=== PATIENT | male | born 1975 | race Caucasian/White ===

== ENCOUNTER → 2020-06-12 17:17 | Outpatient (CLI) | payer BC, SELFPAY ==
--- NOTE | ~2020-06-12 | XR_ITS ---
XR chest 2V DATE: 06/12/2020 17:32 INDICATION: Chest pain TECHNIQUE: PA and lateral views COMPARISON: None FINDINGS: Heart size is within normal range. No pulmonary infiltrate or consolidation, pleural effusi on or pulmonary vascular congestion or pneumothorax is detected. IMPRESSION: No active disease Reviewed, dictated and finalized at location A. IMPRESSION: No active disease
== END ==
PROVIDERS: Visit Provider Physician Assistant
DX: R07.9 Chest pain, unspecified (principal)
CPT/HCPCS: 71046

== ENCOUNTER 2020-06-13 15:46 | Outpatient (CLI) | payer BC, SELFPAY | END 2020-06-13 15:47 | disposition home or self-care (01) | LOC: ANHCOVIDVC 15:46 | DX: Z23 Encounter for immunization (principal) | CPT/HCPCS: 0001A; 91300 ==

== ENCOUNTER 2020-07-04 15:47 | Outpatient (CLI) | payer BC, SELFPAY | END 2020-07-04 15:48 | disposition home or self-care (01) | LOC: ANHCOVIDVC 15:47 | DX: Z23 Encounter for immunization (principal) | CPT/HCPCS: 0002A; 91300 ==

== ENCOUNTER 2020-07-18 08:34 | Outpatient (CLI) | payer BC, SELFPAY ==
--- NOTE | 2020-07-18 08:43 | EST_ITS ---
Patient Info Name: Liban Palomares Age: 44 years : 1975 Gender: Male Ht: 72 in Wt: 330 lbs BSA: 2.83 m2 HR: 84 bpm BP: 148 / 84 mmHg Technical Quality: Good Exam Date: 07/18/2020 8:58 AM Exam Location: [facility] Patient Status: Outpatient Admit Date: 07/18/2020 Staff Ordering Physician: Trev Thomas PA-C Director Of Sustainability: Mckenna Gonzalez RDCS Attending Provider: Trev Thomas PA-C Referring Physician: William PEREZ; Exercise Technologist: Larisa Torres CT Exercise Physician: Mau Alan DO Exam Type: CA stress echo Study Info Indications - left shoulder pain/ arm pain Treadmill exercise stress echocardiogram is performed. Summary 1. 1. Negative Manuel exercise stress test for ischemic ST changes by ECG criteria. 2. 2. Reduced functional capacity, achieving 7 METs of workload. 3. 3. Appropriate HR response to exercise. 4. 4. Appropriate HR recovery at 1 minute post exercise. 5. 5. Negative stress echocardiogram for ischemia by wall motion analysis. 6. 6. Patient informed of the above results. Stress Echo Findings Left Ventricle Appropriate increase in LV endocardial thicking with systole. Appropriate augmentation of contractility with systole. No wall motion abnormality. Left Ventricle Normal LV systolic function, no wall motion abnormality. Protocol: Manuel Stress ECG Details Stage: REST Duration (min): 1 min : 14 sec Speed (mph): 0.0 Grade (%): 0 HR (bpm): 88 SBP (mmHg): 148 DBP (mmHg): 84 METS: --- Stage: REST Duration (min): 11 min : 43 sec Speed (mph): 0.0 Grade (%): 0 HR (bpm): 94 SBP (mmHg): 148 DBP (mmHg): 84 METS: --- Stage: STAGE 1 Duration (min): 0 min : 36 sec Speed (mph): 1.7 Grade (%): 10 HR (bpm): 99 SBP (mmHg): 148 DBP (mmHg): 84 METS: --- Stage: RECOVERY Duration (min): 0 min : 6 sec Speed (mph): 1.5 Grade (%): 0 HR (bpm): 97 SBP (mmHg): 148 DBP (mmHg): 84 METS: --- Rest HR: 94 bpm Peak HR: 100 bpm Rest Sys BP: 148 mmHg Max Pred HR: 176 bpm % Max Pred HR: 57 % Target HR: 150 bpm Max RPP: 12,876 bpm*mmHg Carl Score: -5 Termination Reason: Reached target heart rate or workload Cardiac Symptoms: Shortness of breath Max ST Seg Deviation: 1.10 mm Total Time: 0 min : 36 sec Rest Barr BP: 84 mmHg Angina Score: None Total METS: 2.2 Resting ECG Sinus rhythm. Stress ECG No ST changes. Arrhythmias None. Report Signatures Stress ECG Echo
== END 2020-07-18 08:35 | disposition home or self-care (01) ==
PROVIDERS: Visit Provider Physician Assistant
DX: R07.9 Chest pain, unspecified (principal)
CPT/HCPCS: 93351

== ENCOUNTER → 2020-08-14 07:42 | Outpatient (CLI) | payer BC, SELFPAY ==
--- NOTE | ~2020-08-14 | US_ITS ---
US abdomen limited DATE: 08/14/2020 08:12 INDICATION: Elevated liver enzymes TECHNIQUE: Real-time imaging of liver, pancreas, gallbladder areas COMPARISON: None FINDINGS: There is limited visualization of the pancreas due to interference from bowel gas. Hepatic steatosis. No hepatic space-occupying mass lesion is evident. Normal hepatopedal portal venou s flow direction. No gallstones or gallbladder wall thickening or abnormal pericholecystic fluid collection. Negative s onographic Ayoub's sign. Common bile duct measures 4 mm, normal. IMPRESSION: Hepatic steatosis Normal gallbladder The pancreas is not well demonstrated due to interference from overlying bowel gas. Reviewed, dictated and finalized at Location A. Reviewed, dictated and finalized at location B.
== END ==
PROVIDERS: PCP Family Medicine; Visit Provider Physician Assistant
DX: R74.8 Abnormal levels of other serum enzymes (principal); K76.0 Fatty (change of) liver, not elsewhere classified
CPT/HCPCS: 76705

== ENCOUNTER 2020-11-02 11:03 | Emergency (ER) | payer BC, SELFPAY ==
[2020-11-02 11:11] VITALS: BP 162/86; PULSE 83; RESP 18; TEMP 36.9; O2SAT 98
--- NOTE | 2020-11-02 11:53 | ED.GENADULT ---
HPI - General Adult General Chief complaint: Upper Respiratory Infection Stated complaint: Fatigue,Stuff nose Time Seen by Provider: 11/02/20 11:20 Source: patient and RN notes reviewed Mode of arrival: ambulatory Limitations: no limitations History of Present Illness HPI narrative: Patient presents today with a 1 week history of fatigue, intermittent congestion, and frontal headache. Denies cough or fever. He has been vaccinated against COVID-19. He has not tried any [id number] treatment prior to arrival. He is requesting a rapid COVID-19 test, as he just returned from [place]. complaint: Fatigue, headache, congestion Related Data Allergies Allergy/AdvReac Type Severity Reaction Status Date / Time No Known Allergies Allergy Unverified 06/12/20 16:27 Review of Systems Review of Systems: CONSTITUTIONAL: Denies body aches, fever, chills, or sweats.+ Fatigue EYES: Denies visual changes, redness, or discharge. ENT: Denies rhinorrhea, sore throat, or otalgia.+ Congestion CARDIOVASCULAR: Denies chest pain, palpitations, or edema. RESPIRATORY: Denies cough or dyspnea. GASTROINTESTINAL: Denies abdominal pain, nausea, vomiting, or diarrhea. GENITOURINARY: Denies dysuria or hematuria. SKIN: Denies rash, itching, or wounds. MUSCULOSKELETAL: Denies back pain, joint pain, or myalgia. NEUROLOGIC: Denies numbness, tingling, or weakness.+ Headache PSYCH: Denies depression or anxiety. [facility] Family History Family History Father Hypertension Grandparent Family history of cardiovascular disease Acute myocardial infarction Family history of lung cancer Mother Family history of malignant neoplasm of thyroid Social History Social History Smoking status: Never smoker Alcohol intake: never Course Vital Signs Vital signs: Vital Signs Temperature 98.5 F 11/02/20 11:11 Pulse Rate 83 11/02/20 11:11 Respiratory Rate 18 11/02/20 11:11 Blood Pressure 162/86 H 11/02/20 11:11 Pulse Oximetry 98 11/02/20 11:11 Temperature 98.5 F 11/02/20 11:11 Pulse Rate 83 11/02/20 11:11 Respiratory Rate 18 11/02/20 11:11 Blood Pressure 162/86 H 11/02/20 11:11 Pulse Oximetry 98 11/02/20 11:11 Reviewed. Pt has been instructed to follow up with his PCP regarding his elevated blood pressure today. Medical Decision Making Differential Diagnosis Differential Diagnosis: COVID-19, URI, rhinitis, sinusitis Vital Signs Vital Signs: Vital Signs Temperature 98.5 F 11/02/20 11:11 Pulse Rate 83 11/02/20 11:11 Respiratory Rate 18 11/02/20 11:11 Blood Pressure 162/86 H 11/02/20 11:11 Pulse Oximetry 98 11/02/20 11:11 Temperature 98.5 F 11/02/20 11:11 Pulse Rate 83 11/02/20 11:11 Respiratory Rate 18 11/02/20 11:11 Blood Pressure 162/86 H 11/02/20 11:11 Pulse Oximetry 98 11/02/20 11:11 Lab Data Labs: Lab Results 11/02/20 Range/Units Unknown POC SARS CoV-2 Ag Negative (Negative) Critical Care Time Critical Care Time Critical Care Time: No Discharge Plan Discharge Clinical Impression: Upper respiratory infection Qualifiers: URI type: unspecified URI Qualified Code(s): J06.9 - Acute upper respiratory infection, unspecified Patient Disposition: Home, Self-Care Condition: Stable Instructions: Upper Respiratory Infection (DC) Additional Instructions: Your symptoms are likely due to a virus, which is not treated with antibiotics. Take qdvy-iue-araowsy medication such as an antihistamine such as Zyrtec, Claritin, or Rebecca. For your headache, take an anti-inflammatory such as Aleve or ibuprofen. Rest and stay hydrated. Stay in the air conditioning today. Follow-up with your doctor in 3 to 4 days if symptoms are not improving. Your blood pressure was elevated above 120/80 today at Urgent Care. This puts you above the threshold
== END 2020-11-02 12:08 | disposition home or self-care (01) ==
PROVIDERS: Emergency Provider Nurse Practitioner; PCP Family Medicine
DX: J06.9 Acute upper respiratory infection, unspecified (principal); Z20.822 Contact with and (suspected) exposure to COVID-19
CPT/HCPCS: 87426; 99213; C9803; G0463

== ENCOUNTER 2020-12-03 10:40 | Emergency (ER) | payer BC, SELFPAY ==
[2020-12-03] VITALS (18 sets, daily range): BP systolic 140–163; BP diastolic 62–101; PULSE 74–99; RESP 8–24; TEMP 36.6; O2SAT 82–100
--- NOTE | ~2020-12-03 | XR_ITS ---
EXAMINATION: XR chest 2V DATE: 12/03/2020 11:14 INDICATION: Shortness of breath and chest pain TECHNIQUE: PA and lateral views of the chest are obtained. COMPARISON: 06/12/2020 FINDINGS: The lungs are free of acute opacities. There is no pleural effusion or pneumothorax. The ca rdiomediastinal silhouette is normal. The visualized bones and soft tissues are unremarkable. IMPRESSION: 1. No acute cardiopulmonary abnormality. Reviewed, dictated and finalized at location B.
--- NOTE | 2020-12-03 10:45 | ECG_ITS ---
Measurements Intervals [place] Rate: 94 P: 17 VA: 157 QRS: 8 QRSD: 118 T: 22 QT: 378 QTc: 473 Interpretive Statements SINUS RHYTHM INTRAVENTRICULAR CONDUCTION DELAY DELAYED PRECORDIAL R/S TRANSITION NONSPECIFIC ST ELEVATION IN ANTEROLAT/HIGH LAT LEADS BORDERLINE T WAVE ABNORMALITY- INFERIOR LEADS BASELINE ARTIFACT- II, III, AVR, AVF, V1, V3-V6 BORDERLINE ECG Electronically Signed On 12-03-2020 10:55:59 CDT by Mau Alan D.O.
[2020-12-03 10:59] LABS: Basophils Percent Auto 0.4 % (0.2-1.2); Eosinophils Absolute Auto 0.1 K/mm3 (0-0.3); Eosinophils Percent Auto 0.6 % (0-4.4); Hematocrit 48.3 % (42.0-52.0); Hemoglobin 16.5 g/dL (14.0-18.0); Immature Granulocyte Absolute 0.02 K/mm3 (0.00-0.031); Immature Granulocyte Percent A 0.3 % (0-0.5); Lymphocytes Absolute Auto 1.88 K/mm3 (0.9-3.2); Lymphocytes Percent Auto 23.7 % (18.3-44.2); Mean Corpuscular HGB Conc 34.2 g/dl (32-36); Mean Corpuscular Hemoglobin 29.6 pg (26-34); Mean Corpuscular Volume 86.7 fl (80-100); Mean Platelet Volume 9.2 fl (7.4-10.4); Monocytes Absolute Auto 0.5 K/mm3 (0.1-0.6); Monocytes Percent Auto 6.7 % (2.6-8.5); Neutrophils Absolute Auto 5.4 K/mm3 (1.3-6.7); Neutrophils Percent Auto 68.3 % (45.5-73.1); Platelet Count Result 223 k/mm3 (150-375); Red Blood Count 5.57 M/mm3 (4.6-6.20); White Blood Count 7.9 K/mm3 (4.5-10.0)
[2020-12-03 11:16] LABS: Anion Gap 13 mmol/L (8-16); Blood Urea Nitrogen 9 mg/dL (9-20); Calcium 9.8 mg/dL (8.4-10.2); Carbon Dioxide 23 mmol/L (22-30); Chloride 101 mmol/L (98-107); Estimated CRCL calculation 145 ml/min; Estimated Glomerular Filt Rate > 60; Glucose 115 mg/dL (65-110); Potassium 3.7 mmol/L (3.4-5.0); Sodium 137 mmol/L (137-145)
[2020-12-03] MEDS: ASPIRIN 81 MG CHEWABLE TABLET 324 MG PO (11:19)
[2020-12-03 11:27] LABS: Troponin I 0.016 ng/mL (0.000-0.034)
--- NOTE | 2020-12-03 12:10 | ED.CHESTPAIN ---
HPI - Chest Pain General Chief Complaint: Chest Pain Stated Complaint: CP/SOB Time Seen by Provider: 12/03/20 10:44 History of Present Illness HPI narrative: Patient is a 44-year-old male who presents ER with reports of chest discomfort has been occurring when he lays down to sleep the last 2 nights. Associated with burning and belching that goes up into the back of his throat. He also feels like his heart will race at these instances. He does take Protonix chronically. He has been taking antibiotics starting last night because he has been having loose stools since 5 days ago that have been mucus in appearance. He been seen by the PA at his PCPs office and they thought treating him for colitis would be atkins. Denies any fevers or chills or sweats. No abdominal pain at this time. No loss of consciousness. Had a negative stress test earlier this year. Related Data Allergies Allergy/AdvReac Type Severity Reaction Status Date / Time No Known Allergies Allergy Verified 12/03/20 10:51 Review of Systems Review of Systems: All systems reviewed & are unremarkable except as noted in HPI and below Constitutional: Constitutional: Denies chills, Denies fever(s) and Denies weakness ENT: Denies nasal congestion and Denies sore throat Cardiovascular: Cardiovascular: Reports chest pain, Reports rapid heart rate and Denies radiating jaw, neck or arm pain Respiratory: Respiratory: Denies cough and Denies dyspnea Gastrointestinal: Gastrointestinal: Reports abdominal pain, Reports heartburn, Reports diarrhea, Denies nausea and Denies vomiting PMFSH Past Medical History Medical History (Updated 12/03/20 @ 15:00 by Josh Russell MD) Benign essential hypertension GERD (gastroesophageal reflux disease) Lipoma Surgical History Surgical History (Updated 12/03/20 @ 14:53 by Josh Russell MD) No pertinent past surgical history Family History Family History Father Hypertension Grandparent Family history of cardiovascular disease Acute myocardial infarction Family history of lung cancer Mother Family history of malignant neoplasm of thyroid Social History Social History Smoking status: Never smoker Alcohol intake: never Exam Narrative: GENERAL: Well-appearing, well-nourished, and in no acute distress. HEAD: Normocephalic, atraumatic. ENT: Mucous membranes moist. CHEST: Clear to auscultation. No respiratory distress. HEART: Regular rate and rhythm. Normal peripheral pulses. ABDOMEN: Soft, nontender, nondistended. EXTREMITIES: Normal range of motion. No edema. SKIN: Warm, dry, no rash. NEURO: Alert and oriented x3. PSYCH: Normal mood and affect. Course Course Emergency Course: Patient reports while eating only a clear diet with a few crackers for the last several days. Suspect this could be increasing his gastric secretions. Recommend eating a bland diet and increasing his Protonix to twice daily. Verbalized understanding. Discharge home. Vital Signs Vital signs: Vital Signs Temperature 97.8 F 12/03/20 10:46 Pulse Rate 99 12/03/20 10:46 Respiratory Rate 18 12/03/20 10:46 Blood Pressure 162/101 H 12/03/20 10:46 Pulse Oximetry 97 12/03/20 10:46 Temperature 97.8 F 12/03/20 10:46 Pulse Rate 90 12/03/20 13:45 Respiratory Rate 12 12/03/20 13:45 Blood Pressure 163/75 H 12/03/20 13:01 Pulse Oximetry 100 12/03/20 13:45 MDM - Chest Pain Lab Data Result diagrams: 12/03/20 10:52 12/03/20 10:53 Labs: Lab Results 12/03/20 12/03/20 12/03/20 Range/Units 10:52 10:53 10:53 WBC 7.9 (4.5-10.0) K/mm3 RBC 5.57 (4.6-6.20) M/mm3 Hgb 16.5 (14.0-18.0) g/dL Hct 48.3 (42.0-52.0) % MCV 86.7 (80-100) fl MCH 29.6 (26-34) pg MCHC 34.2 (32-36) g/dl RDW 14.0 (11.5-14.5) % Plt Count 223 (150-375) k/mm3 MPV 9
[2020-12-03 12:22] LABS: Prothrombin Time 13.4 Seconds (11.1-14.7)
[2020-12-03 12:23] LABS: Partial Thromboplastin Time 28.4 SECONDS (22.3-36.8)
[2020-12-03 13:57] LABS: Troponin I < 0.012 ng/mL (0.000-0.034)
== END 2020-12-03 15:11 | disposition home or self-care (01) ==
PROVIDERS: Emergency Provider Emergency Medicine; PCP Family Medicine
DX: R07.89 Other chest pain (principal); K21.9 Gastro-esophageal reflux disease without esophagitis; I10 Essential (primary) hypertension; I45.9 Conduction disorder, unspecified; R94.31 Abnormal electrocardiogram [ECG] [EKG]
CPT/HCPCS: 36415; 71046; 80048; 84484; 85025; 85610; 85730; 93005; 99284; A9270

== ENCOUNTER 2021-01-14 03:07 | Day surgery (SDC) | payer BC, SELFPAY ==
[2020-12-29 10:33] VITALS: BMI 38.0
--- NOTE | 2021-01-13 10:18 | WPDANESEPPF ---
Anes - Initial Pre Proc Eval Procedure: Operation Date: 01/14/21 10:30 Proposed Procedures p Esophagogastroduodenoscopy & Colonoscopy - Claude Yoon MD Date/Time: 01/13/21 10:18 Surgeon: Claude Yoon MD Pre Op Diagnosis: nausea, GERD, rectal bleeding Patient Data Age: 45 Gender: M Height: 1.83 m Weight: 127 kg Allergies Allergy/AdvReac Type Severity Reaction Status Date / Time No Known Allergies Allergy Verified 01/14/21 09:47 Home Medications Medication Instructions Recorded Confirmed Type pantoprazole 40 mg tablet,delayed 40 mg PO BID tablet 12/10/20 01/14/21 History release hydrochlorothiazide 12.5 mg tablet 12.5 mg PO DAILY 12/22/20 01/14/21 History multivitamin 1 tablet PO DAILY 12/22/20 01/14/21 History omega-3 fatty acids 1,000 mg 2,000 mg PO DAILY cap 12/22/20 01/14/21 History capsule alprazolam 0.25 mg tablet 0.25 mg PO QHS PRN #14 tablet 01/05/21 01/14/21 Rx sertraline 50 mg tablet 50 mg PO DAILY #30 tablet 01/05/21 01/14/21 Rx Patient hx anesthesia problems: none Family hx anesthesia problems: none Results Review: All pre-operative results and documents have been reviewed as part of the pre-operative evaluation. FOR[facility]LY [facility], [facility] Past Medical History Medical History (Updated 01/13/21 @ 10:19 by Joel Mcgraw DO) Benign essential hypertension Change in bowel habits Fatty liver GERD (gastroesophageal reflux disease) Lipoma SASHA (obstructive sleep apnea) Surgical History Surgical History (Updated 01/13/21 @ 10:19 by Joel Mcgraw DO) History of tonsillectomy Family History Family History Father Hypertension Grandparent Family history of cardiovascular disease Acute myocardial infarction Family history of lung cancer Mother Family history of malignant neoplasm of thyroid Social History Social History Alcohol intake: never Drinks per week: 1 Substance use: never Living arrangements: alone Spiritual care concerns: No Anes - Eval Final PreProcedure Day of Procedure 01/13/21 10:18 Patient weight: obese Heart: regular rate and rhythm Lungs: clear to auscultation and normal air movement Airway: Mallampati scale class II Neurological: alert and oriented Last oral intake: >/= 8 hours ASA classification: III Emergent: no Anesthetic plan: proceed Anesthesia type and monitoring: general GIVS and standard monitoring Results Review: All pre-operative results and documents have been reviewed as part of the pre-operative evaluation. Informed Consent: The patient's anesthetic plan and its attendant risks and benefits were discussed with the patient/family/POA. Questions were solicited and answers provided to the satisfaction of the patient/family/POA.
[2021-01-14 09:48] VITALS: BP 141/91; PULSE 85; RESP 18; TEMP 36; O2SAT 100
[2021-01-14] MEDS: LACTATED RINGERS 1,000 ML 150 ML IV CONT (09:57)
--- NOTE | 2021-01-14 10:17 | WPDGICN ---
Assessment and Plan Assessment and plan (1) Umbilical hernia: Code(s): K42.9 - Umbilical hernia without obstruction or gangrene Status: Acute Assessment and Plan: Patient has an incarcerated abdominal hernia. Plan is for patient to see Dr. moore for surgical evaluation and therapy. This is possibly the etiology of his current complaints (2) Change in bowel habits: Code(s): R19.4 - Change in bowel habit Status: Acute Assessment and Plan: Patient has had alteration in his bowel habits since November. Plan is for high-fiber diet colonoscopy is suggested. Will be performed (3) Morbid obesity: Code(s): E66.01 - Morbid (severe) obesity due to excess calories Status: Acute Assessment and Plan: Weight loss strongly encouraged with decreased caloric intake and increase activity. (4) Abdominal pain: Code(s): R10.9 - Unspecified abdominal pain Status: Acute Assessment and Plan: patient has vague abdominal pain poorly described a distant history of acid reflux. Because of the increasing persistent abdominal pain EGD will be performed today as well. GI Consult Note Consult date/time: 01/14/21 10:17 HPI: Liban Palomares is a 45 year old male Referred for colonoscopy and EGD. Patient reports that his abdominal complaints began initially in October. At that time he had chest discomfort. In November began to have vague abdominal discomfort that occurred intermittently. He would feel his stomach grumble. He would have abdominal pain that occurred intermittently. Not particularly related to diet or bowel habits. His bowel habits have become somewhat more irregular since that time. He denies any bleeding. He has had no weight loss. States most of the discomfort is centered around his umbilicus. He is known to have an umbilical hernia. Family history is noncontributory. He has had no weight loss. Surgery for the umbilical hernia is contemplating GI endoscopy is suggested prior that because of the vague symptoms. Review of Systems Review of Systems: All systems reviewed & are unremarkable except as noted in HPI and below [facility] Past Medical History Medical History (Updated 01/14/21 @ 10:19 by Claude Yoon MD) Benign essential hypertension Change in bowel habits Fatty liver GERD (gastroesophageal reflux disease) Lipoma SASHA (obstructive sleep apnea) Surgical History Surgical History (Updated 01/13/21 @ 10:19 by Joel Mcgraw DO) History of tonsillectomy Family History Family History Father Hypertension Grandparent Family history of cardiovascular disease Acute myocardial infarction Family history of lung cancer Mother Family history of malignant neoplasm of thyroid Social History Social History Alcohol intake: never Drinks per week: 1 Substance use: never Living arrangements: alone Spiritual care concerns: No Meds Home Medications and Allergies Home Medications Medication Instructions Recorded Confirmed Type pantoprazole 40 mg tablet,delayed 40 mg PO BID tablet 12/10/20 01/14/21 History release hydrochlorothiazide 12.5 mg tablet 12.5 mg PO DAILY 12/22/20 01/14/21 History multivitamin 1 tablet PO DAILY 12/22/20 01/14/21 History omega-3 fatty acids 1,000 mg 2,000 mg PO DAILY cap 12/22/20 01/14/21 History capsule alprazolam 0.25 mg tablet 0.25 mg PO QHS PRN #14 tablet 01/05/21 01/14/21 Rx sertraline 50 mg tablet 50 mg PO DAILY #30 tablet 01/05/21 01/14/21 Rx Allergies Allergy/AdvReac Type Severity Reaction Status Date / Time No Known Allergies Allergy Verified 01/14/21 09:47 Vital Signs Vital Signs - 24 hr 01/14/21 09:48 Temperature 96.8 F L Pulse Rate 85 Respiratory Rate 18 Blood Pressure 141/91 H Pulse Oximetry 100 Exam Narrative: Physical exam
--- NOTE | 2021-01-14 10:36 | SUR.OPER ---
EGD ended at 1032. Colonoscopy started at 1037.
[2021-01-14 10:51] VITALS: BP 117/68; PULSE 68; RESP 24; O2SAT 96
[2021-01-14 11:01] VITALS: BP 126/81; PULSE 69; RESP 12; O2SAT 95
[2021-01-14 11:11] VITALS: BP 143/97; PULSE 58; RESP 19; O2SAT 94
== END 2021-01-14 11:23 | disposition home or self-care (01) ==
PROVIDERS: PCP Family Medicine; Visit Provider Internal Medicine Gastroenterology
PROC: 0DJ08ZZ Inspection of Upper Intestinal Tract, Via Natural or Artificial Opening Endoscopic (ICD-10-PCS; CPT 43235; principal; 2021-01-14 10:30)
DX: R10.84 Generalized abdominal pain (principal); R19.4 Change in bowel habit; K64.8 Other hemorrhoids; K57.30 Diverticulosis of large intestine without perforation or abscess without bleeding; K21.9 Gastro-esophageal reflux disease without esophagitis; I10 Essential (primary) hypertension; K76.0 Fatty (change of) liver, not elsewhere classified; G47.33 Obstructive sleep apnea (adult) (pediatric); E66.9 Obesity, unspecified; Z68.36 Body mass index [BMI] 36.0-36.9, adult
CPT/HCPCS: 43239; 45378; 87081; J2001; J2704; J7120

== ENCOUNTER 2021-02-06 02:42 | Day surgery (SDC) | payer BC, SELFPAY ==
[2021-02-03 10:41] VITALS: BMI 38.0
--- NOTE | 2021-02-03 11:00 | PC.NURSE ---
Report to the Outpatient Waiting Room, entrance under the green pavilion located off [facility], at time 0700 on date 02/06/21. OR Time: 0900. - You and your visitor will be asked a series of questions to screen for COVID 19 for your protection. - A mask is required within the hospital. - Only one visitor is allowed at this time. Patient visitors will be guided where to wait when not with patient. Preoperative COVID Testing Requirements: No COVID Test needed if: (proof is required; if not received patient will have Rapid Test prior to entry) - Patient has received COVID Vaccine at least 14 days prior to procedure date or - Patient has positive COVID test result within last 90 days of surgery date. COVID Test needed if above criteria is not met If not COVID vaccinated a COVID test must be conducted within 72 hours of surgery and patient is asked to isolate self from time of testing until procedure. You will go to the [facility] for your COVID testing. The [facility] site is located at the corner of [address] [facility]. You will only be called if COVID results are positive and your surgeon may reschedule your elective surgery date. Patients may have clear liquids (water, carbonated beverages, clear teas, apple juice) until 3 hours prior to surgery with a maximum of 20 ounces. - No food from midnight until time of surgery - Infants may have breast milk until 4 hours before surgery, infant formula 6 hours prior to surgery. - Children will be allowed to drink immediately following surgery. If applicable, please bring a bottle or sippy cup to assist with drinking. Juice, water, soda, and popsicles are readily available. For infants on formula, please bring formula the day of surgery. Pacifiers are allowed. Take the following medications with a SIP of water the morning of surgery: XANAX (IF NEEDED) Medications to discontinue per physician: VITAMINS/SUPPLEMENTS Date to take last dose: 3 DAYS PRE-OP Please no make-up, nail hungarian, hairspray, perfume, deodorant, or body powder the day of surgery. No jewelry (including any body piercings) or valuables the day of surgery, leave them at home. Please take a shower or bath the night before, or the morning of, surgery with an antibacterial soap. Wear comfortable, loose fitting clothing. Children are encouraged to wear pajamas. HIBICLENS SHOWER - Jewelry must be removed prior to entering the operating room. Rings and piercings that are not removed may be cut off. - The hospital will not accept responsibility for valuables. - Please leave all valuables, including medications, at home the day of surgery. If you are going home after surgery, a licensed interstate bus driver must drive you home. - NO public transportation without another adult. - We recommend that an adult stay with you for 24 hours following discharge. - We also recommend that you do not drive, make important decision, drink alcoholic beverages, or take any drugs that were not prescribed by your health care provider for at least 24 hours after your discharge time. For Pediatric surgeries, we recommend two adults accompany the child home (only one inside the building at this time). Follow any additional instructions given to you from your surgeon. Telephone instructions given to REMA STARKS and asked if any additional questions and then verbalized understanding. Patient advised to call surgeon office or pre surgery nurse liaison [phone] if any additional questions.
--- NOTE | 2021-02-06 07:09 | WPDHPUPDATE1 ---
History and Physical Update Update Date/Time: 02/06/21 07:09 History and Physical has been reviewed, including an updated exam of the patient. There are NO changes in the patient's condition. Risks, benefits, and alternatives have been discussed and questions answered. Patient agrees to proceed with procedure.
[2021-02-06 07:36] VITALS: BMI 38.2
[2021-02-06] MEDS: ACETAMINOPHEN 500 MG TABLET 1000 MG PO (07:49)
[2021-02-06] MEDS: KETOROLAC 15 MG/ML VIAL (*BKC) IV PUSH (07:49)
--- NOTE | 2021-02-06 08:11 | WPDANESEPPF ---
Anes - Initial Pre Proc Eval Procedure: Operation Date: 02/06/21 09:00 Proposed Procedures p Repair Incarcerated Umbilical Hernia With Mesh - Maycol Brooks MD Date/Time: 02/06/21 08:11 Surgeon: Maycol Brooks MD Pre Op Diagnosis: Incarcerated Umbilical Hernia Patient Data Age: 45 Gender: M Height: 1.83 m Weight: 128 kg Allergies Allergy/AdvReac Type Severity Reaction Status Date / Time ondansetron [From Zofran] AdvReac Sweating Verified 02/06/21 07:31 Home Medications Medication Instructions Recorded Confirmed Type multivitamin 1 tablet PO DAILY 12/22/20 02/06/21 History omega-3 fatty acids 1,000 mg 2,000 mg PO DAILY cap 12/22/20 02/06/21 History capsule alprazolam 0.25 mg tablet 0.25 mg PO QHS PRN #14 tablet 01/05/21 02/06/21 Rx nystatin 100,000 unit/gram topical 1 applic TOPICAL BID #60 g 01/15/21 02/06/21 Rx powder hydrochlorothiazide 12.5 mg tablet See Rx Instructions .ROUTE 01/16/21 02/06/21 Rx .COMPLEX #90 tablet pantoprazole 40 mg tablet,delayed 40 mg PO BID #180 tablet 01/16/21 02/06/21 Rx release L. acidophilus-L. rhamnosus 1 cap PO DAILY 02/03/21 02/06/21 History [Probiotic] methylcellulose (laxative) 500 mg PO BID 02/03/21 02/06/21 History [Citrucel] niacin 1,500 mg PO HS 02/03/21 02/06/21 History sertraline [Zoloft] 50 mg PO HS 02/03/21 02/06/21 History Patient hx anesthesia problems: none Family hx anesthesia problems: none Results Review: All pre-operative results and documents have been reviewed as part of the pre-operative evaluation. [facility] Past Medical History Medical History Benign essential hypertension Change in bowel habits Fatty liver GERD (gastroesophageal reflux disease) Lipoma SASHA (obstructive sleep apnea) Surgical History Surgical History History of tonsillectomy Family History Family History Father Hypertension Grandparent Family history of cardiovascular disease Acute myocardial infarction Family history of lung cancer Mother Family history of malignant neoplasm of thyroid Social History Social History Smoking status: Never smoker Alcohol intake: never Substance use: never Substance use type: does not use Living arrangements: with family 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 Informed Consent: The patient's anesthetic plan and its attendant risks and benefits were discussed with the patient/family/POA. Questions were solicited and answers provided to the satisfaction of the patient/family/POA.
[2021-02-06] MEDS: LACTATED RINGERS 1,000 ML 30 ML IV CONT (08:22)
[2021-02-06 08:24] VITALS: BP 160/92; PULSE 76; RESP 20; TEMP 36.4; O2SAT 98
[2021-02-06] MEDS: ceFAZolin 3 GM/D5W 100 ML 100 ML IVPB (10:32)
[2021-02-06 11:52] VITALS: BP 136/84; PULSE 83; RESP 16; O2SAT 92
[2021-02-06 12:15] VITALS: BP 136/82; PULSE 67; RESP 16; O2SAT 94
--- NOTE | 2021-02-06 12:36 | P.OP_ITS ---
Procedure Note - Detailed Date of Procedure 02/06/21 Pre-op Diagnosis Incarcerated Umbilical Hernia Post-op Diagnosis other (Chronically incarcerated umbilical and ventral hernias.) Procedure Performed Repair ventral hernia with [address] underlay mesh Surgeon Maycol Brooks MD Finishing Lab Technician Char Tidwell [facility] Anesthesia MAC and local (1% lidocaine with epinephrine) Indications Patient is an umbilical hernia for some time. In the last couple of months this has become frequently painful and more tender. He was seen in the office and found to have a non reducible somewhat tender chronically incarcerated umbilical hernia. He is taken to surgery now for repair with underlay mesh. Findings Not only was there an umbilical hernia but there were also 2 ventral hernia defects just cephalad of the umbilical hernia. The hernia was longer than it was wide. I divided the fascial bridges between the hernias leaving a 3 cm by 1.5 cm defect. Description of Procedure The patient was taken to surgery and IV sedation was administered. The abdomen is prepped and draped. The proposed incision was marked on the skin along the lower margin of the umbilicus. Local anesthetic was infiltrated into the skin and the subcutaneous. Incision was made dissection was carried through the skin down to the herniated sac. I dissected around the sac and dissected the umbilical skin off the sac and the fascia. I dissected circumferentially around the hernia defect. I then divided the hernia sac at its neck. There was some epiploica and properitoneal fat in the hernia. All this was excised using the cautery. The hernia was then reduced. The hernia sac was discarded. I then undermined the subcutaneous all around the hernia defect. When undermining in the cephalad direction, 2 additional ventral hernias were noted. There was less than a 1 cm skin bridge between the other 2 hernias and the umbilical defect. I placed a finger in the abdomen and checked for any other hernia defects in the area. None were found. I divided the fascial bridges between the hernias. This resulted in a 2.5-3 cm defect in the craniocaudad direction as well as a 1- 1.5 cm defect in the medial the lateral dimension. An 8 cm Ventralex patch was chosen. The patch was placed in the defect and position symmetrically. Right and left lateral transfascial sutures of 0 Ethibond were placed suturing the fascia to the mesh on each instance. These sutures were placed in such a fashion that they would advance the edges of the hernia defect towards 1 another once they were tied. This had the desired effect. I then placed cranial and caudal transfascial sutures to further secure the mesh in these directions. Finally the defect was closed with [id number] mattress sutures of 0 Ethibo nd suturing each of these to a bit of mesh as well. The repair looked quite satisfactory. I then tacked the umbilical skin to the fascia with 3-0 Vicryl suture. Some subcutaneous 3-0 Vicryl sutures were placed as well. Interrupted 4 0 Vicryl subcuticular sutures were used on the skin. Finally a running 4-0 Monocryl subcuticular skin suture was placed. The wound was dressed with Exofin surgical adhesive. The patient was awakened and taken to recovery in good condition. Sponge and needle counts were correct x2. The [employer] production grader, Hal, was present throughout the surgery. Implants [address] hernia mesh Estimated Blood Loss -10.0 Drains No Packing No Pathology none sent Complications No immediate complications Condition stable Disposition same day
[2021-02-06 12:45] VITALS: BP 149/99; PULSE 65; RESP 16
[2021-02-06 13:15] VITALS: BP 148/100; PULSE 66; RESP 16
== END 2021-02-06 13:30 | disposition home or self-care (01) ==
PROVIDERS: PCP Family Medicine; Visit Provider Surgery
PROC: (CPT 49561; principal; 2021-02-06 09:00)
DX: K42.0 Umbilical hernia with obstruction, without gangrene (principal); K43.6 Other and unspecified ventral hernia with obstruction, without gangrene; I10 Essential (primary) hypertension; K21.9 Gastro-esophageal reflux disease without esophagitis; K76.0 Fatty (change of) liver, not elsewhere classified; G47.33 Obstructive sleep apnea (adult) (pediatric); M62.08 Separation of muscle (nontraumatic), other site; B37.2 Candidiasis of skin and nail; E66.9 Obesity, unspecified; Z68.38 Body mass index [BMI] 38.0-38.9, adult
CPT/HCPCS: 49561; 49568; A9270; J0690; J1100; J1170; J1885; J2250; J2704; J3010; J7120

== ENCOUNTER → 2021-03-17 11:13 | Outpatient (CLI) | payer BC, SELFPAY ==
--- NOTE | ~2021-03-17 | CT_ITS ---
EXAMINATION: CT abdomen pelvis wo con DATE: 03/17/2021 11:28 INDICATION: Left lower quadrant pain. History of umbilical hernia repair. Hypertension. TECHNIQUE: Computed tomography (CT) of the abdomen and pelvis was performed without intravenous contr ast. The dose-length product was 1112.93 mGy-cm. Automated exposure control and iterative reconstruct ion technique were employed. COMPARISON: None. FINDINGS: There is a 3 mm right middle lobe nodule, likely benign. Otherwise, lung bases are unremark able. Heart size is normal. No significant vascular abnormality. No lymphadenopathy. There are change s of prior umbilical hernia repair with mild fluid and stranding at the umbilicus, likely postsurgica l. Colonic diverticulosis without evidence for diverticulitis. Calcified granulomas of the liver and spleen. The pancreas, adrenal glands and kidneys are unremarkab le. No hydronephrosis. Gallbladder is present. No acute osseous abnormality. Normal lumbar lordosis. IMPRESSION: 1. No acute abdominal abnormality. 2: Surgical changes of prior umbilical hernia repair. Reviewed, dictated and finalized at location A. ER FIXER
== END ==
PROVIDERS: PCP Family Medicine; Visit Provider Surgery
DX: R10.32 Left lower quadrant pain (principal); Z98.890 Other specified postprocedural states
CPT/HCPCS: 74176

== ENCOUNTER 2024-07-04 08:39 | Outpatient (CLI) | payer BC, SELFPAY ==
--- NOTE | ~2024-07-04 | MR_ITS ---
EXAMINATION: MR knee LT wo con DATE: 07/04/2024 09:22 INDICATION: Left knee pain TECHNIQUE: Magnetic resonance imaging (MRI) of the left knee was performed without intravenous contra st. Sequences included coronal PD-weighted FSE, coronal PD-weighted FS FSE, sagittal T2-weighted FSE , sagittal PD-weighted FS FSE and axial PD weighted fat saturated FSE. COMPARISON: None. FINDINGS: Medial compartment: Thickness radial radial tear near the posterior root of the medial meniscus with medial extrusion of the meniscal body. There is diffuse mild partial-thickness cartilage loss along the weightbearing med ial femoral condyle and medial tibial plateau most prominent at the central weightbearing medial femo ral condyle but with smooth chondral surface throughout. Lateral compartment: Lateral meniscus is normal. Articular cartilage is normal. Patellofemoral compartment: Deep chondral ulceration with underlying cortical irregularity and subarticular cystlike changes at t he lateral patellar facet and apical ridge. Mild partial-thickness cartilage loss with some chondral surface regularity along the medial talar facet. There is deep chondral ulceration with additional mi ld cortical irregularity and subarticular cystlike change at the superolateral aspect of the lateral trochlea. Ligaments and tendons: Anterior and posterior cruciate ligaments are normal. The medial collateral ligament and fibular leslie ateral ligament complex are normal. The extensor mechanism is normal. The visualized medial and later al hamstring tendons as well as the iliotibial band are normal. Fluid: Small knee joint effusion with mild synovitis at the suprapatellar pouch. No loose osteochondral bodi es identified. Small Regalado's cyst. Osseous/other: There is marrow edema underlying the medial rim of the medial tibial plateau without evident fracture line. No fracture or pathologic marrow replacing process. IMPRESSION: 1. Full-thickness radial tear near the posterior root of the medial meniscus with extrusion of the me dial meniscal body. 2. Mild osteoarthritis with moderate grade chondromalacia in the medial compartment and moderate oste oarthritis with high-grade chondral malacia the lateral aspect of the patellofemoral compartment. 3. Marrow edema underlying the medial rim of the medial tibial plateau which could relate to overlyin g chondromalacia, bone contusion related to discrete injury or stress reaction resulting from altered stresses distribution resulting from the meniscal tear. 4. Small left knee joint effusion and small Regalado's cyst. Reviewed, dictated and finalized at location B. IMPRESSION: 1. Full-thickness radial tear near the posterior root of the medial meniscus wi th extrusion of the medial meniscal body. 2. Mild osteoarthritis with moderate grade chondromalacia in the medial compart ment and moderate osteoarthritis with high-grade chondral malacia the lateral a spect of the patellofemoral compartment. 3. Marrow edema underlying the medial rim of the medial tibial plateau which co uld relate to overlying chondromalacia, bone contusion related to discrete inju ry or stress reaction resulting from altered stresses distribution resulting fr om the meniscal tear. 4. Small left knee joint effusion and small Regalado's cyst.
== END 2024-07-04 08:40 | disposition home or self-care (01) ==
LOC: GOSHIMG 08:39
PROVIDERS: PCP Nurse Practitioner Family; Visit Provider Nurse Practitioner Family
DX: M25.462 Effusion, left knee (principal); M17.12 Unilateral primary osteoarthritis, left knee; S83.242A Other tear of medial meniscus, current injury, left knee, initial encounter; X58.XXXA Exposure to other specified factors, initial encounter
CPT/HCPCS: 73721

== ENCOUNTER 2024-07-20 10:35 | Outpatient (CLI) | payer BC, SELFPAY ==
--- NOTE | ~2024-07-20 | MR_ITS ---
EXAMINATION: MR femur LT wo con DATE: 07/20/2024 11:22 INDICATION: Left thigh pain TECHNIQUE: Magnetic resonance imaging (MRI) of the left thigh/femur was performed without intravenous contrast. Sequences included axial sagittal and coronal T1-weighted FSE and fluid sensitive FSE STI R. COMPARISON: Left femur radiographs dated 07/11/2024 FINDINGS: The distalmost femurs at the level of the femoral condyles are excluded from the [id number]. There are foci of susceptibility artifact along the bilateral mid to distal femoral diaphyses likely relat ed to reported childhood surgery. There is long osseous excrescence/fin of bone extending along the p osterolateral margin of the distal left femoral diaphysis which demonstrates cortical and medullary c ontinuity most likely related to prior surgery although differential would also include a long sessil e osteochondroma without discernible cartilaginous cap. There is normal bone marrow signal throughout with no reactive edema, fracture or pathologic marrow replacing process. Normal and symmetric muscle bulk and signal in the bilateral thighs. No hip joint effusions or other abnormal fluid collections. Visualized portion of the partially decompressed bladder and prostate are unremarkable. Moderate-siz ed left and small right fat-containing bilateral inguinal hernias. IMPRESSION: 1. No etiology identified for reported left thigh pain. 2. Multiple small foci of susceptibility artifact along the bilateral distal femoral diaphysis likely related to reported prior childhood surgery. 3. Mild osseous encroachment with cortical medullary continuity along the posterolateral margin of th e distal left femoral diaphysis which could be related to prior surgery or potentially a long sessile osteochondroma. Reviewed, dictated and finalized at location A. IMPRESSION: 1. No etiology identified for reported left thigh pain. 2. Multiple small foci of susceptibility artifact along the bilateral distal fe moral diaphysis likely related to reported prior childhood surgery. 3. Mild osseous encroachment with cortical medullary continuity along the poste rolateral margin of the distal left femoral diaphysis which could be related to prior surgery or potentially a long sessile osteochondroma.
== END 2024-07-20 10:36 | disposition home or self-care (01) ==
LOC: GOSHIMG 10:35
PROVIDERS: PCP Nurse Practitioner Family; Visit Provider Orthopaedic Surgery
DX: M79.652 Pain in left thigh (principal)
CPT/HCPCS: 73718

== ENCOUNTER 2025-01-15 09:15 | Outpatient (RCR) | payer BC, SELFPAY ==
[2024-11-21 13:57] VITALS: BMI 52.3
--- NOTE | 2024-11-23 09:32 | PCDIET ---
Nutrition consult completed. Thank you for the referral!
== END 2025-01-28 10:08 | disposition home or self-care (01) ==
LOC: ANHDMC 09:15
PROVIDERS: PCP Nurse Practitioner Family; Visit Provider Nurse Practitioner Family
DX: E11.9 Type 2 diabetes mellitus without complications (principal); Z71.89 Other specified counseling; Z71.3 Dietary counseling and surveillance
CPT/HCPCS: 97802; G0108